=== PATIENT | female | born 1995 | race Caucasian/White ===

== ENCOUNTER → 2017-05-31 | Outpatient (CLI) | payer BC ==
--- NOTE | 2017-05-31 15:55 | XR ---
EXAMINATION TYPE: XR wrist complete LT, XR forearm LT DATE OF EXAM: 05/31/2017 CLINICAL HISTORY: pain TECHNIQUE: Frontal and lateral images of the left forearm are obtained. COMPARISON: None. FINDINGS: There is no acute fracture/dislocation evident. The joint spaces appear within normal limi ts. The overlying soft tissue appears unremarkable. IMPRESSION: There is no acute fracture or dislocation. ICD 10 NO FRACTURE, INITIAL EVALUATION EXAMINATION TYPE: XR wrist complete LT, XR forearm LT DATE OF EXAM: 05/31/2017 CLINICAL HISTORY: pain TECHNIQUE: Frontal, lateral and oblique images of the left wrist are obtained. COMPARISON: None. FINDINGS: There is no acute fracture/dislocation evident. The joint spaces appear within normal fitzpatrick its. The overlying soft tissue appears unremarkable. IMPRESSION: There is no acute fracture or dislocation seen. ICD 10 NO FRACTURE, INITIAL EVALUATION
== END ==
LOC: RADXRMAIN 15:35
PROVIDERS: ATTEND Family Medicine
DX: T14.90XA Injury, unspecified, initial encounter (principal)

== ENCOUNTER 2018-01-11 04:04 | Emergency (ER) | payer BC ==
--- NOTE | 2018-01-11 05:24 | ED ---
Chest Pain HPI - General Source: patient Mode of arrival: ambulatory Limitations: no limitations <MaryBryant - Last Filed: 01/11/18 05:24> - General Source: patient, family, RN notes reviewed <Jose Roberto Eaton - Last Filed: 01/11/18 08:46> - General Chief Complaint: Chest Pain Stated Complaint: Chest Pain Time Seen by Provider: 01/11/18 04:26 - History of Present Illness Initial Comments: Patient is a pleasant 22-year-old female presenting to the emergency department with complaints of chest discomfort. Patient originally seen by Dr. Chapa. Patient does have sharp discomfort left chest that waxes and wanes. Patient has been having symptoms for the past month, symptoms were worse yesterday. No discomfort at this time. Patient states she does have stress however is no worse than normal. (Jose Roberto Eaton) - Related Data Home Medications Medication Instructions Recorded Confirmed No Known Home Medications [No 11/05/14 01/11/18 Known Home Medications] Allergies Allergy/AdvReac Type Severity Reaction Status Date / Time No Known Allergies Allergy Verified 01/11/18 08:39 Review of Systems ROS Other: All systems not noted in ROS Statement are negative. <Bryant Hernandez - Last Filed: 01/11/18 05:24> ROS Other: All systems not noted in ROS Statement are negative. Constitutional: Denies: fever Eyes: Denies: eye pain ENT: Denies: ear pain Respiratory: Denies: cough Cardiovascular: Reports: chest pain Gastrointestinal: Denies: abdominal pain, vomiting Genitourinary: Denies: dysuria Musculoskeletal: Denies: back pain Skin: Denies: rash Neurological: Denies: weakness <Jose Roberto Eaton - Last Filed: 01/11/18 08:46> ROS Statement: Those systems with pertinent positive or pertinent negative responses have been documented in the HPI. EKG Findings - EKG Results: EKG: interpreted by ERMD, sinus rhythm (With first-degree AV block, rate approximately 94 bpm), normal axis, normal QRS - Blocks, Goodwin, Hypertrophy, ST Abn: AV and intraventricular conduction: 1 AV block Repolarization changes or abnormalities: nonspecific abnormality, ST segment, and/or T wave <Bryant Hernandez - Last Filed: 01/11/18 05:24> Past Medical History Past Medical History: GERD/Reflux History of Any Multi-Drug Resistant Organisms: None Reported Past Surgical History: No Surgical Hx Reported Past Psychological History: No Psychological Hx Reported Smoking Status: Never smoker Past Alcohol Use History: Occasional Past Drug Use History: None Reported <MaryBryant - Last Filed: 01/11/18 05:24> General Exam Limitations: no limitations <MaryBryant - Last Filed: 01/11/18 05:24> Limitations: no limitations General appearance: alert, in no apparent distress Head exam: Present: atraumatic Eye exam: Present: normal appearance Neck exam: Present: normal inspection Respiratory exam: Present: normal lung sounds bilaterally. Absent: chest wall tenderness Cardiovascular Exam: Present: regular rate, normal rhythm, normal heart sounds Expanded Peripheral pulses: 2+: Radial (R), Radial (L), Dorsalis Pedis (R), Dorsalis Pedis (L) GI/Abdominal exam: Present: soft. Absent: tenderness Extremities exam: Present: normal inspection. Absent: pedal edema, calf tenderness Neurological exam: Present: alert Psychiatric exam: Present: normal affect, normal mood Skin exam: Present: normal color <Jose Roberto Eaton - Last Filed: 01/11/18 08:46> Course <Bryant Hernandez - Last Filed: 01/11/18 05:24> <Jose Roberto Eaton - Last Filed: 01/11/18 08:46> Vital Signs 01/11/18 01/11/18 01/11/18 04:09 05:48 06:52 Temperature 98.3 F Pulse Rate 93 83 75 Respiratory 18 18 16 Rate Blood Pressure 130/79 120/72 118/73 O2 Sat by Pulse 100 98 99 Oximetry - Reevaluation(s) Reevaluation #1: 01/11/18 08:43 Chest x-ray shows no acute abnormality. I did review this. EKG was reviewed Patient evaluated by myself and is symptom-free. Patient and family updated on results and need for follow-up. Patient states she does have a primary care physician. (Jose oRberto Eaton) Chest Pain MDM - KWAME Score Age > 65: (0) No 3 or more CAD Risk Factors: (0) No Known CAD with more than 50% Stenosis: (0) No Elevated Cardiac Markers: (0) No ST Deviation Greater than 0.5mm: (0) No <Jose Roberto Eaton - Last Filed: 01/11/18 08:46> Disposition <Bryant Hernandez - Last Filed: 01/11/18 05:24> Is patient prescribed a controlled substance at d/c from ED?: No Time of Disposition: 08:45 <Jose Roberto Eaton - Last Filed: 01/11/18 08:46> Clinical Impression: Chest pain Disposition: HOME SELF-CARE Condition: Stable Instructions: Chest Pain (ED) Additional Instructions: Please follow-up with primary care physician in the next day or 2 for recheck. Consider cardiac echo. Return for increased pain, difficulty breathing, change or worsening symptoms, or any other concerns. Referrals: Christ Castellano MD [Primary Care Provider] - 1-2 days
[2018-01-11 05:48] LABS: Basophils % (A) 0 %; Eosinophils # (A) 0.1 k/uL (0-0.7); Eosinophils % (A) 2 %; HCT 38.2 % (34.0-46.0); HGB 13.4 gm/dL (11.4-16.0); Lymphocytes # (A) 1.8 k/uL (1.0-4.8); Lymphocytes % (A) 24 %; MCH 30.5 pg (25.0-35.0); MCHC 35.1 g/dL (31.0-37.0); MCV 86.7 fL (80.0-100.0); Mean Platelet Volume 7.1; Monocytes # (A) 0.5 k/uL (0-1.0); Monocytes % (A) 6 %; Neutrophils # (A) 5.2 k/uL (1.3-7.7); Neutrophils % (A) 67 %; Platelet Count 212 k/uL (150-450); RBC 4.41 m/uL (3.80-5.40); RDW 12.2 % (11.5-15.5); WBC 7.8 k/uL (3.8-10.6)
[2018-01-11 05:57] LABS: Creatine Kinase 92 U/L (30-135)
[2018-01-11 05:58] LABS: ALT 26 U/L (9-52); AST 23 U/L (14-36); Alkaline Phosphatase 71 U/L (38-126); Amylase 61 U/L (30-110); Anion Gap 12 mmol/L; Blood Urea Nitrogen 11 mg/dL (7-17); Calcium 9.7 mg/dL (8.4-10.2); Carbon Dioxide 24 mmol/L (22-30); Chloride 105 mmol/L (98-107); Glucose 93 mg/dL (74-99); Lipase 40 U/L (23-300); Magnesium 2.1 mg/dL (1.6-2.3); Potassium 3.6 mmol/L (3.5-5.1); Sodium 141 mmol/L (137-145); Total Bilirubin 0.8 mg/dL (0.2-1.3); Total Protein 7.5 g/dL (6.3-8.2)
[2018-01-11 06:04] LABS: D-Dimer 0.22 mg/L FEU (<0.60); Partial Thromboplastin Time 24.4 sec (22.0-30.0); Prothrombin Time 10.2 sec (9.0-12.0)
[2018-01-11 06:10] LABS: Creatine Kinase MB 0.6 ng/mL (0.0-2.4); Troponin I <0.012 ng/mL (0.000-0.034)
--- NOTE | 2018-01-11 06:13 | XR ---
EXAM: XR Chest, 2 Views CLINICAL HISTORY: ITS.REASON XR Reason: Chest Pain TECHNIQUE: Frontal and lateral views of the chest. COMPARISON: No relevant prior studies available. FINDINGS: Lungs: Unremarkable. No consolidation. Pleural space: Unremarkable. No pneumothorax. Heart: Unremarkable. No cardiomegaly. Mediastinum: Unremarkable. Bones/joints: Unremarkable. IMPRESSION: Normal chest x-rays.
[2018-01-11 06:54] VITALS: RESP 16
[2018-01-11 09:04] VITALS: BP 109/70; PULSE 72; TEMP 98.2
== END 2018-01-11 09:02 | disposition home or self-care (01) ==
LOC: EC 04:04
DX: R07.9 Chest pain, unspecified (principal)
CPT/HCPCS: 36415; 71046; 80053; 81025; 82150; 82550; 82553; 83690; 83735; 84484; 85025; 85379; 85610; 85730; 93005; 99285

== ENCOUNTER 2018-03-02 12:19 | Emergency (ER) | payer BC ==
[2018-03-02 12:25] VITALS: RESP 18; TEMP 98.2
[2018-03-02] MEDS ORDERED: SODIUM CHLORIDE 0.9% 1,000 ML IV ONE (12:59)
--- NOTE | 2018-03-02 13:55 | XR ---
EXAMINATION TYPE: XR chest 2V DATE OF EXAM: 03/02/2018 COMPARISON: 01/11/2018 HISTORY: 22-year-old female with chest pain TECHNIQUE: PA and lateral views FINDINGS: The cardiomediastinal silhouette, aorta, and pulmonary vasculature are within normal limits. Lungs an d pleural spaces are clear. IMPRESSION: No acute cardiopulmonary process.
[2018-03-02 14:31] LABS: ALT 24 U/L (9-52); AST 25 U/L (14-36); Albumin 4.7 g/dL (3.5-5.0); Alkaline Phosphatase 53 U/L (38-126); Anion Gap 10 mmol/L; Blood Urea Nitrogen 11 mg/dL (7-17); Calcium 9.5 mg/dL (8.4-10.2); Carbon Dioxide 23 mmol/L (22-30); Chloride 107 mmol/L (98-107); Glucose 99 mg/dL (74-99); Magnesium 2.1 mg/dL (1.6-2.3); Potassium 4.1 mmol/L (3.5-5.1); Sodium 140 mmol/L (137-145); Total Bilirubin 1.4 mg/dL (0.2-1.3)
[2018-03-02 14:38] LABS: D-Dimer 0.23 mg/L FEU (<0.60); INR 1.1 (<1.2); Partial Thromboplastin Time 23.1 sec (22.0-30.0); Prothrombin Time 10.6 sec (9.0-12.0)
[2018-03-02 15:19] LABS: Basophils % (A) 0 %; Eosinophils # (A) 0.1 k/uL (0-0.7); Eosinophils % (A) 1 %; HCT 36.8 % (34.0-46.0); HGB 12.6 gm/dL (11.4-16.0); Lymphocytes # (A) 1.6 k/uL (1.0-4.8); Lymphocytes % (A) 23 %; MCH 30.2 pg (25.0-35.0); MCHC 34.2 g/dL (31.0-37.0); MCV 88.5 fL (80.0-100.0); Mean Platelet Volume 8.6; Monocytes # (A) 0.3 k/uL (0-1.0); Monocytes % (A) 5 %; Neutrophils # (A) 4.8 k/uL (1.3-7.7); Neutrophils % (A) 70 %; Platelet Count 219 k/uL (150-450); RBC 4.16 m/uL (3.80-5.40); RDW 12.7 % (11.5-15.5); WBC 6.9 k/uL (3.8-10.6)
--- NOTE | 2018-03-02 15:43 | ED ---
Chest Pain HPI - General Source: patient, RN notes reviewed Mode of arrival: EMS Limitations: no limitations <Karissa Husain - Last Filed: 03/03/18 00:46> <ChristFranco - Last Filed: 03/03/18 07:11> - General Chief Complaint: Chest Pain Stated Complaint: Chest Pain Time Seen by Provider: 03/02/18 12:30 - History of Present Illness Initial Comments: This is a 22-year-old female with no past medical history who presents today for chief complaint of chest pain. Patient states that she has had chest pain for the past 6 months, was seen here around 3 months ago for the same complaint where they "found nothing wrong". 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 Patient states that she has experienced multiple episodes of this chest pain randomly, and this is not the first time she did experience these symptoms. She also stated that she constantly has chest pain in the center of her chest that is 5 out of 10 aching pain. She denied knowing any patterns, it does not increase with respiration. She states that it is tender to touch but also is aching when she is not touching it. When she was seen 3 months ago for similar complaint, workup for acute coronary syndrome was negative, no arrhythmia at that time. Patient was discharged instruction to follow-up with her primary care brought provider, and he recommended an echo. Patient states she did not follow up with her primary care provider because she stated her mom works there. However the primary care provider gave her referral for vibratory pile driver in [place]. She had appointment scheduled with her vibratory pile driver today at 4:30 PM for initial evaluation, however due to her symptoms at work she was told by her coworkers that she needed to go to the emergency department via EMS. Upon arrival of EMS patient still complained of chest pain 9/10 sharp in nature that she said radiated down her left arm, a line was established patient was given 325 mg of aspirin, IV fluids. Upon arrival to [facility] patient's vital signs stable. EKG was obtained revealing sinus tachycardia with first-degree AV block, no ST elevation or T-wave inversion. Patient denied current dizziness, shortness of breath, however she stated that her chest pain was a 5 out of 10 aching pain without radiation in the center her chest the same pain she experiences daily.Patient denies any recent fever, chills, IVDU, back pain, abdominal pain, nausea or vomiting, numbness or tingling, dysuria or hematuria, constipation or diarrhea, headaches or visual changes, or any other complaints. (Karissa Husain) - Related Data Home Medications Medication Instructions Recorded Confirmed No Known Home Medications 11/05/14 03/02/18 Allergies Allergy/AdvReac Type Severity Reaction Status Date / Time No Known Allergies Allergy Verified 03/02/18 12:58 Review of Systems ROS Other: All systems not noted in ROS Statement are negative. Constitutional: Denies: fever, chills, weight change, night sweats Eyes: Denies: eye pain, vision change ENT: Denies: hearing loss Cardiovascular: Reports: as per HPI, chest pain. Denies: palpitations, dyspnea on exertion, orthopnea, edema, syncope, paroxysmal nocturnal dyspnea Gastrointestinal: Denies: abdominal pain, nausea, vomiting, diarrhea, constipation Genitourinary: Denies: urgency, dysuria, frequency, hematuria Musculoskeletal: Denies: back pain, arthralgia Skin: Denies: rash, lesions, change in color Neurological: Denies: headache, weakness, numbness, paresthesias, confusion, abnormal gait Psychiatric: Reports: anxiety (pt states that she does have occasional anxiety) <Karissa Husain - Last Filed: 03/03/18 00:46> ROS Other: All systems not noted in ROS Statement are negative. <Franco Polo - Last Filed: 03/03/18 07:11> ROS Statement: Those systems with pertinent positive or pertinent negative responses have been documented in the HPI. EKG Findings - EKG Comments: EKG Findings:: Ventricular rate 106 beats per minute, MS interval 212 ms, QRS 86 ms, QT/QTc 328/[address] elevation or T-wave inversion. Sinus tachycardia with first-degree AV block- otherwise normal EKG. <Karissa Husain - Last Filed: 03/03/18 00:46> Past Medical History Past Medical History: GERD/Reflux History of Any Multi-Drug Resistant Organisms: None Reported Past Surgical History: No Surgical Hx Reported Past Psychological History: No Psychological Hx Reported Smoking Status: Never smoker Past Alcohol Use History: Occasional Past Drug Use History: None Reported <Karissa Husain - Last Filed: 03/03/18 00:46> General Exam Limitations: no limitations <Karissa Husain - Last Filed: 03/03/18 00:46> <Franco Polo - Last Filed: 03/03/18 07:11> - General Exam Comments Initial Comments: General: The patient is awake and alert, in no distress, and does not appear acutely ill. She appear comfortable. (-) Levign sign Eye: Pupils are equal, round and reactive to light, extra-ocular movements are intact. No nystagmus. There is normal conjunctiva bilaterally. No signs of icterus. Ears, nose, mouth and throat: There are moist mucous membranes and no oral lesions. Neck: The neck is supple, there is no tenderness or JVD. Cardiovascular: There is a regular rate and rhythm. No murmur, rub or gallop is appreciated. No friction rub appreciated. Respiratory: Lungs are clear to auscultation, respirations are non-labored, breath sounds are equal. No wheezes, stridor, rales, or rhonchi. Gastrointestinal: Soft, non-distended, non-tender abdomen without masses or organomegaly noted. There is no rebound or guarding present. Bowel sounds are unremarkable. Musculoskeletal: Normal ROM, no tenderness. Strength 5/5. Sensation intact. Radial and DP pulses equal bilaterally 2+. Neurological: A&O x 3. CN II-XII intact, There are no obvious motor or sensory deficits. Coordination appears grossly intact. Speech is normal. Skin: Skin is warm and dry and no rashes or lesions are noted. No lower extremity edema. No cyanosis. Psychiatric: Cooperative, appropriate mood & affect, normal judgment. (LisahKarissa Nava) Course <Karissa Husain Elijah - Last Filed: 03/03/18 00:46> <Franco Polo - Last Filed: 03/03/18 07:11> Vital Signs 03/02/18 03/02/18 03/02/18 12:22 14:13 15:48 Temperature 98.2 F Pulse Rate 109 H 93 94 Respiratory 18 18 18 Rate Blood Pressure 131/62 119/73 121/79 O2 Sat by Pulse 97 97 98 Oximetry 03/02/18 17:06 Temperature 98.2 F Pulse Rate 94 Respiratory 18 Rate Blood Pressure 121/79 O2 Sat by Pulse 98 Oximetry - Reevaluation(s) Reevaluation #1: 03/03/18 07:11 PA supervision: I did personally review the case with the physician therapy administrative assistant as well as review the results of all testing and do agree with the assessment and plan. (Franco Polo) Chest Pain [facility] - [place] Criteria Clinical Symptoms of DVT: (0) No No Alternative Diagnosis: (0) No Immobilization of Surgery in Previous 4 Weeks: (0) No Previous DVT/PE: (0) No Hemoptysis: (0) No Malignancy: (0) No - KWAME Score Age > 65: (0) No 3 or more CAD Risk Factors: (0) No Known CAD with more than 50% Stenosis: (0) No Aspirin use within the Past 7 Days: (0) No Elevated Cardiac Markers: (0) No ST Deviation Greater than 0.5mm: (0) No <Karissa Husain - Last Filed: 03/03/18 00:46> <Franco Polo - Last Filed: 03/03/18 07:11> - [facility] Initial VS stable HR elevated at 106bpm. Pt placed on continuous cardiac monitoring, EKG obtained revealing no changes from previous EKG-revealing sinus tachycardia with 1st degree AV block. Pt admitted to chest pain 5/10 dull ache in center of chest without radiation, that is the same pain she has everyday for the past 6 months. Able to increase pain with palpation of center of chest. CBC, CMP, trop, mag, D-dimer, bHCG, PT, PTT/INR and urine drug toxicology obtained all returned (-) or within normal limits. UA dirty catch, no urinary symptoms. Sent for culture. CXR (-) for silhouette enlargement or acute cardiopulmonary process. Pt given 1000mL bolus 0.9% NS. Repeat VS HR 94 bpm. BP in left arm 125/84, right arm 117/88. Upon evaluation pt stated she was ready for discharge and feeling better without symptoms. Case discussed with Dr. Polo who agreed with impression and plan. At this time we have low suspicion for ACS given pt age, risk factors and negative cardiac w/u. Low suspicion for PE given (-) Well and D-dimer WNL. At this time we feel pt is stable for discharge with PCP for further cardiology referral. We recommend holter monitoring and/or echo to ensure no underlying arrythmia or structural defect. Pt agreed with plan and was discharged in stable condition with instruction to return to the ER if symptoms return, worsen or change. (Karissa Husain) Disposition Is patient prescribed a controlled substance at d/c from ED?: No Time of Disposition: 16:12 <Karissa Husain - Last Filed: 03/03/18 00:46> <Franco Polo - Last Filed: 03/03/18 07:11> Clinical Impression: Chest pain Disposition: HOME SELF-CARE Condition: Good Instructions: Chest Pain (ED), Costochondritis (ED) Additional Instructions: Please follow-up with family doctor in the next 2 days for cardiology referral and further evaluation. I recommend holter monitoring, and possible echo. Please return to emergency room if the symptoms increase or worsen or for any other concerns as discussed. Referrals: Christ Castellano MD [Primary Care Provider] - 1-2 days
[2018-03-02 15:50] VITALS: BP 121/79; PULSE 94
[2018-03-02 16:09] LABS: Appearance,Urine Turbid (Clear); Bacteria,Urine Occasional /hpf; Bilirubin,Urine Negative (Negative); Blood,Urine Trace (Negative); Color,Urine Yellow; Glucose,Urine (UA) Negative (Negative); Ketones,Urine Negative (Negative); Leukocyte Esterase,Urine Large (Negative); Mucus,Urine Many /hpf; Nitrite,Urine Negative (Negative); PH, Urine 6.5 (5.0-8.0); Protein,Urine 1+ (Negative); RBC,Urine 6 /hpf (0-5); Specific Gravity,Urine 1.017 (1.001-1.035); Squamous Epithelial Cell,Urine 50 /hpf (0-4); WBC,Urine 19 /hpf (0-5)
[2018-03-02 16:16] LABS: Amphetamine Screen,Urine Not Detected (NotDetected); Barbiturate Screen,Urine Not Detected (NotDetected); Benzodiazepines Screen,Urine Not Detected (NotDetected); Cocaine Screen,Urine Not Detected (NotDetected); Methadone Screen, Urine Not Detected (NotDetected); Opiate Screen,Urine Not Detected (NotDetected); Oxycodone Screen, Urine Not Detected (NotDetected); Phencyclidine Screen,Urine Not Detected (NotDetected); Tricyclic Antidepressant,Urine Not Detected (NotDetected); Urn Cannabinoid Scrn Not Detected (NotDetected)
== END 2018-03-02 17:06 | disposition home or self-care (01) ==
LOC: EC 12:19
DX: R07.9 Chest pain, unspecified (principal); I44.0 Atrioventricular block, first degree; R00.0 Tachycardia, unspecified
CPT/HCPCS: 36415; 71046; 80053; 80306; 81001; 83735; 84484; 85025; 85379; 85610; 85730; 87086; 93005; 99285

== ENCOUNTER → 2020-04-13 | Outpatient (CLI) | payer BC ==
--- NOTE | 2020-04-13 12:38 | XR ---
EXAMINATION TYPE: XR ankle complete LT, XR foot complete LT DATE OF EXAM: 04/13/2020 CLINICAL HISTORY: Rolling injury with pain and swelling. TECHNIQUE: Frontal, lateral and oblique images of the left ankle and foot are obtained. COMPARISON: None. FINDINGS: There is no acute fracture/dislocation evident in the left ankle. The ankle mortise appea rs within normal limits. The overlying soft tissue appears unremarkable. There is no acute fracture or dislocation evident in the left foot. The joint spaces in the left sophia t are preserved. Overlying soft tissue is unremarkable. IMPRESSION: There is no acute fracture or dislocation in the left ankle or foot.
== END | disposition home or self-care (01) ==
LOC: RAD 11:37
PROVIDERS: ATTEND Family Medicine
DX: M25.572 Pain in left ankle and joints of left foot (principal)

== ENCOUNTER → 2020-11-06 | Outpatient (CLI) | payer BC | END | disposition home or self-care (01) | LOC: LABWHC1 15:29 | PROVIDERS: ATTEND Family Medicine | DX: Z20.822 Contact with and (suspected) exposure to COVID-19 (principal) | CPT/HCPCS: U0003; C9803 ==

== ENCOUNTER → 2021-01-15 | Outpatient (CLI) | payer BC, OTHER ==
--- NOTE | 2021-01-15 09:08 | US ---
EXAMINATION TYPE: US OB >= 14 wk fetus DATE OF EXAM: 01/15/2021 COMPARISON: None CLINICAL HISTORY: O36.63X0 Large for dates TECHNIQUE: GESTATIONAL AGE / DATING Physician Established: (32 weeks/0 days) EDC: 03-12-21 Dates by LMP: LMP unknown Dates by First Scan: No previous at this facility Dates by Current Scan: ( weeks/ days) EDC: Beta HCG (if available): SURVEY IUP: Single PLACENTA: Anterior PREVIA: No Previa DAT: 13.6 cm CERVICAL LENGTH (transabdominal: norm > 3.0cm): 3.2 cm BIOMETRY PRESENTATION: LIE: BPD: 8.9 cm 36 weeks / 2 days HC: 32.3 cm 36 weeks / 3days AC: 30.0 cm 34 weeks / 0 days FL: 6.4 cm 33 weeks / 0 days ESTIMATED WEIGHT IN GRAMS: 2364 grams ESTIMATED WEIGHT IN LBS/OZ: 5 lbs. 3 oz. WEIGHT PERCENTAGE BASED ON ESTABLISHED DATES: 94 % HC/AC: 1.1 FL/AC: 21.4 HEART RATE: 147 bpm RHYTHM: Normal This is not an anatomic survey. IMPRESSION: Single live intrauterine measuring approximately 34 weeks and 2 days gestation by sonograph ic criteria. measurements, as above.
== END | disposition home or self-care (01) ==
LOC: RADUSWWP 08:09
PROVIDERS: ATTEND Obstetrics & Gynecology
DX: O36.63X0 Maternal care for excessive fetal growth, third trimester, not applicable or unspecified (principal); Z3A.34 34 weeks gestation of pregnancy
CPT/HCPCS: 76805

== ENCOUNTER 2021-02-19 15:56 | Inpatient (IN) | payer BC, OTHER ==
[2021-02-19] MEDS ORDERED: CITRIC ACID-SODIUM CITRATE 15 ML CUP PO ONE (17:04)
[2021-02-19] MEDS ORDERED: LACTATED RINGERS 1,000 ML IV ONE (17:04)
[2021-02-19] MEDS ORDERED: LACTATED RINGERS 1,000 ML IV SCH (17:15)
[2021-02-19 17:34] LABS: Glucose,Whole Blood 85 mg/dL (75-99)
[2021-02-19 17:47] LABS: Basophils % (A) 0 %; Eosinophils # (A) 0.1 k/uL (0-0.7); Eosinophils % (A) 1 %; HCT 38.1 % (34.0-46.0); HGB 13.4 gm/dL (11.4-16.0); Lymphocytes # (A) 1.9 k/uL (1.0-4.8); Lymphocytes % (A) 16 %; MCH 31.5 pg (25.0-35.0); MCHC 35.2 g/dL (31.0-37.0); MCV 89.6 fL (80.0-100.0); Mean Platelet Volume 9.7; Monocytes # (A) 0.6 k/uL (0-1.0); Monocytes % (A) 5 %; Neutrophils # (A) 9.6 k/uL (1.3-7.7); Neutrophils % (A) 78 %; Platelet Count 159 k/uL (150-450); RBC 4.25 m/uL (3.80-5.40); RDW 13.7 % (11.5-15.5); WBC 12.3 k/uL (3.8-10.6)
[2021-02-19] MEDS ORDERED: MORPHINE SULFATE (PF) 0.3 MG/0.3 ML SYR ONE (18:02)
[2021-02-19] MEDS ORDERED: ONDANSETRON 4 MG/2 ML VIAL ONE (18:02)
[2021-02-19] MEDS ORDERED: KETOROLAC 15 MG/ML 1 ML VIAL ONE (18:02)
[2021-02-19] MEDS ORDERED: PHENYLEPHRINE-0.9% NACL SYG 1,000 MCG/10 ML SYRINGE ONE (18:02)
[2021-02-19] MEDS ORDERED: NALBUPHINE 10 MG/ML (1 ML AMP) ONE (18:02)
[2021-02-19] MEDS ORDERED: OXYTOCIN 30 UNITS/500 ML NS BAG IV ONE (18:02)
[2021-02-19] MEDS ORDERED: HYDROmorphone 2 MG TAB PO PRN (18:41)
[2021-02-19] MEDS ORDERED: diphenhydrAMINE 50 MG/ML 1 ML VIAL IVP PRN ×2 (18:41)
[2021-02-19] MEDS ORDERED: MEASLES-MUMPS-RUBELLA VACC/PF 12,500 UNIT/0.5 ML VIAL SQ ONE (18:41)
[2021-02-19] MEDS ORDERED: diphenhydrAMINE 50 MG CAP PO PRN (18:41)
[2021-02-19] MEDS ORDERED: diphenhydrAMINE 25 MG CAP PO PRN (18:41)
[2021-02-19] MEDS ORDERED: NALOXONE 0.4 MG/ML 1 ML VIAL IV PRN ×2 (18:41→19:01)
[2021-02-19] MEDS ORDERED: ZOLPIDEM 5 MG TAB PO PRN (18:41)
[2021-02-19] MEDS ORDERED: ONDANSETRON 4 MG/2 ML VIAL IVP PRN (18:41)
[2021-02-19] MEDS ORDERED: METOCLOPRAMIDE 5 MG/ML 2 ML VIAL IVP PRN (18:41)
--- NOTE | 2021-02-19 18:45 | P.HPOB ---
History of Present Illness H&P Date: 02/19/21 Chief Complaint: Intrauterine term: Gdm A2: Macrosomia by u/s Jolanta is a 25-year-old at 37 weeks gestation who had an ultrasound approximately 2 weeks ago suspecting macrosomia in the neighborhood of 98 percentile. A discussion was held 20 she and her primary oracle financial application developer as well as she and myself and while she was offered an opportunity to labor if she wanted to, a very thorough description in discussion of shoulder dystocia and potential other competitions was held with the patient and she and her have opted for primary section which she was scheduled for at 39 weeks. She has been on insulin for her gestational diabetes and has been followed closely through the and otherwise voices no complaints or other issues. There apparently was a fibroid noted at an early ultrasound does not appear to have been noted on [id number] ultrasounds and she did see endocrinology for her gestational diabetes. Risks/benefits/alternatives to this procedure were reviewed with patient in detail and all questions were answered for her prior to proceeding to the operating room. Adequate 1 tracing is noted. She notes that she believes she had rupture of membranes potentially's early is a 30 this morning with leaking fluid throughout the day. We did also review possible risks of rupture membranes for an extended period of time even with negative group B strep status. Pertinent labs O+ blood type, Rh have been was negative, rubella is nonimmune, hepatitis E surface antigen Noam B strep were both negative. Past Medical History Past Medical History: GERD/Reflux History of Any Multi-Drug Resistant Organisms: None Reported Past Surgical History: No Surgical Hx Reported Past Anesthesia/Blood Transfusion Reactions: No Reported Reaction Past Psychological History: No Psychological Hx Reported Smoking Status: Never smoker Past Alcohol Use History: Occasional Past Drug Use History: None Reported - Past Family History Mother Family Medical History: Osteoarthritis (OA) Medications and Allergies Home Medications Medication Instructions Recorded Confirmed Type Insulin Detemir (Levemir) [Levemir] 45 arlet u SQ ONCE 02/19/21 02/19/21 History Allergies Allergy/AdvReac Type Severity Reaction Status Date / Time No Known Allergies Allergy Verified 02/19/21 16:14 Exam Osteopathic Statement: *. No significant issues noted on an osteopathic structural exam other than those noted in the History and Physical/Consult. Vital Signs Temp Pulse Resp BP Pulse Ox 02/19/21 16:45 97.1 F L 107 H 16 131/85 98 02/19/21 16:36 97.1 F L 107 H 16 131/85 98 Intake and Output 02/19/21 02/19/21 02/19/21 06:59 14:59 22:59 Other: Weight 92.533 kg - OBG Physical Exam Breast: both: normal (no masses) Abdomen: bowel sounds normal, no diffuse tenderness, no bruit present, no guarding noted, no hepatomegaly, no splenomegaly, no mass Vulva: both: normal Vagina: normal moisture, no discharge Cervix: no lesion, no discharge Uterus: normal size, normal contour Adnexa: both: normal Anus/Rectum: normal perianal skin, no rectal mass, no hemorrhoids, heme negative Results Result Diagrams: 02/19/21 17:42 Abnormal Lab Results - Last 24 Hours (Table) 02/19/21 Range/Units 17:42 WBC 12.3 H (3.8-10.6) k/uL Neutrophils # 9.6 H (1.3-7.7) k/uL
--- NOTE | 2021-02-19 18:48 | P.OP ---
Date of Procedure: 02/19/21 Preoperative Diagnosis: Intrauterine at term: Gestation diabetes A2: Macrosomia by ultrasound: Spontaneous rupture membranes Postoperative Diagnosis: Same Procedure(s) Performed: Primary low transverse section Anesthesia: spinal Surgeon: Duglas Mcdermott District Sales Representative #1: Madeleine Mazariegos Estimated Blood Loss (ml): 300 IV fluids (ml): 800 Urine output (ml): 250 Pathology: other (Placenta) Condition: stable Disposition: floor Operative Findings: Male scores of 8 and 9 at one and 5 minutes Neeraj and weight was 6 lbs. 15 oz. Description of Procedure: A she was taken to the operating suite where a spinal anesthetic was found be adequate. She was prepped and draped in normal sterile fashion and placed in the dorsal supine position with leftward tilt. Initially a Pfannenstiel skin incision was made and this incision was then carried through to underlying layer of the fascia with the second knife. Fascia was then nicked in the midline and this opening was extended laterally with Graves scissors. Superior and inferior aspect of this incision were then grasped tented up and bluntly and sharply dissected off the rectus muscles. Rectus muscles were then divided midline and blunt dissection through the peritoneum was done. This opening was then extended superiorly and inferiorly with good visualization of both bowel bladder. Bladder blade was then grasped elevated and entered with Scissors Carried across Face Uterus and Bluntly Dissected Out Of the Operative Field. Knife Was Then Used To Incise Uterus This Opening Was Then Extended Bluntly Following Hemostat Used for Completion of Entry into the Uterus. Head Was Then Atraumatically Delivered and Mouth and Nares Were Bulb Suctioned. Nuchal Cord 1 Was Noted and Easily Reduced. Remainder of Baby Was Then Delivered with Gentle Traction and Nursery Personnel Was Present to Assume Care. Placenta Was Then Delivered Intact Following Obtaining of Cord Blood. Uterus Was Then Exteriorized Cleared of Clots and Debris and Closed in 2 Layers with 0 Vicryl Suture. Once Hemostasis Was Obtained Blood and Debris Was Suctioned
[2021-02-19] MEDS ORDERED: MORPHINE SULFATE 2 MG/ML SYRINGE IVP PRN (19:01)
[2021-02-20] MEDS: LACTATED RINGERS 1,000 ML IV SCH ×2 (00:08→02:56)
[2021-02-20] MEDS: SENNOSIDES-DOCUSATE SODIUM 1 EACH TAB PO SCH ×3 (00:08→20:07)
[2021-02-20] MEDS ORDERED: KETOROLAC 15 MG/ML 1 ML VIAL IVP SCH (06:00)
[2021-02-20 06:27] LABS: Basophils % (A) 0 %; Eosinophils # (A) 0.1 k/uL (0-0.7); Eosinophils % (A) 1 %; HCT 31.1 % (34.0-46.0); HGB 10.9 gm/dL (11.4-16.0); Lymphocytes # (A) 2.1 k/uL (1.0-4.8); Lymphocytes % (A) 15 %; MCH 31.8 pg (25.0-35.0); MCHC 34.9 g/dL (31.0-37.0); MCV 91.2 fL (80.0-100.0); Mean Platelet Volume 9.4; Monocytes # (A) 0.6 k/uL (0-1.0); Monocytes % (A) 4 %; Neutrophils # (A) 11.2 k/uL (1.3-7.7); Neutrophils % (A) 79 %; Platelet Count 138 k/uL (150-450); RBC 3.41 m/uL (3.80-5.40); RDW 13.6 % (11.5-15.5); WBC 14.1 k/uL (3.8-10.6)
--- NOTE | 2021-02-20 06:30 | P.PNOBGPC ---
Subjective - Subjective Patient reports: Reports appetite normal, Reports voiding normally, Reports pain well controlled, Reports ambulating normally : doing well Objective - Vital Signs Latest vital signs: Vital Signs Temp Pulse Resp BP Pulse Ox 02/20/21 06:00 14 02/20/21 04:00 97.7 F 65 14 99/66 99 02/20/21 02:00 14 02/20/21 00:00 98.3 F 87 14 109/73 98 02/19/21 22:01 16 02/19/21 20:50 97.9 F 89 16 125/80 02/19/21 20:20 97.5 F L 86 16 129/82 02/19/21 20:01 16 98 02/19/21 19:50 96.7 F L 91 16 126/67 02/19/21 19:35 97 16 113/65 02/19/21 19:20 97.0 F L 84 16 109/63 02/19/21 19:05 97.3 F L 92 16 106/59 02/19/21 19:01 16 97 02/19/21 18:50 96.9 F L 90 16 95/50 98 02/19/21 16:45 97.1 F L 107 H 16 131/85 98 02/19/21 16:36 97.1 F L 107 H 16 131/85 98 Intake and Output 02/19/21 02/19/21 02/20/21 14:59 22:59 06:59 Output Total 550 600 Balance -550 -600 Output: Urine 600 Uretheral (Duncan) 600 Estimated Blood Loss 550 Other: Voiding Method Indwelling Catheter Indwelling Catheter Weight 92.533 kg - Exam Lungs: bilateral: normal Chest: Normal S1, Normal S2 Extremities: Present: normal Abdomen: Present: normal appearance, soft. Absent: distention, tenderness Incision: Present: normal, dry, intact Uterus: Present: normal, firm - Labs Labs: Abnormal Lab Results - Last 24 Hours (Table) 02/19/21 02/20/21 Range/Units 17:42 06:02 WBC 12.3 H 14.1 H (3.8-10.6) k/uL RBC 3.41 L (3.80-5.40) m/uL Hgb 10.9 L (11.4-16.0) gm/dL Hct 31.1 L (34.0-46.0) % Plt Count 138 L (150-450) k/uL Neutrophils # 9.6 H 11.2 H (1.3-7.7) k/uL Assessment and Plan Assessment: Postoperative day #1. Patient is resting without complaints. Vital signs are stable she's afebrile. Uterus is firm nontender she's having normal lochia. Impression is normal course. Plan is check a CBC, encourage ambulation, allow the patient shower. (1) delivery delivered Current Visit: Yes Status: Acute Code(s): O82 - ENCOUNTER FOR DELIVERY WITHOUT INDICATION SNOMED Code(s): 899085538
[2021-02-20] MEDS: IBUPROFEN 600 MG TAB PO PRN ×3 (07:57→23:09)
--- NOTE | 2021-02-20 09:31 | P.PN ---
Progress Note - Text Date: 02/20/2021 Time: 07:07 The patient is status post section Vital signs stable VAS: 0-10 Patient has no complaints of pain. The patient incurred some minimal itching yesterday, this itching is now subsiding. Pain meds to be managed by service.
[2021-02-20] MEDS: ACETAMINOPHEN TAB 325 MG TAB PO PRN ×2 (13:26→20:07)
[2021-02-21] MEDS: IBUPROFEN 600 MG TAB PO PRN ×2 (06:13→13:22)
--- NOTE | 2021-02-21 06:27 | P.PNOBGPC ---
Subjective - Subjective Patient reports: Reports appetite normal, Reports voiding normally, Reports pain well controlled, Reports ambulating normally : doing well Objective - Vital Signs Latest vital signs: Vital Signs Temp Pulse Resp BP Pulse Ox 02/20/21 23:22 98.1 F 94 14 114/77 98 02/20/21 15:55 98.3 F 76 16 96/64 02/20/21 12:00 98.5 F 80 16 103/63 02/20/21 08:00 108 H 16 117/68 - Exam Lungs: bilateral: normal Chest: Normal S1, Normal S2 Extremities: Present: normal Abdomen: Present: normal appearance, soft. Absent: distention, tenderness Incision: Present: normal, dry, intact Uterus: Present: normal, firm - Labs Labs: Abnormal Lab Results - Last 24 Hours (Table) 02/20/21 Range/Units 06:02 WBC 14.1 H (3.8-10.6) k/uL RBC 3.41 L (3.80-5.40) m/uL Hgb 10.9 L (11.4-16.0) gm/dL Hct 31.1 L (34.0-46.0) % Plt Count 138 L (150-450) k/uL Neutrophils # 11.2 H (1.3-7.7) k/uL Assessment and Plan Assessment: Postoperative day #2. Patient is resting without new complaints and wishes to go home. Vital signs are stable and she is afebrile. Uterus is firm nontender and she is having normal lochia. My impression this is a normal course. Plan is to continue routine postoperative care and discharge home later today. (1) delivery delivered Current Visit: Yes Status: Acute Code(s): O82 - ENCOUNTER FOR DELIVERY WITHOUT INDICATION SNOMED Code(s): 362142963
--- NOTE | 2021-02-21 06:35 | P.DS ---
Providers Date of admission: 02/19/21 16:42 Expected date of discharge: 02/21/21 Attending physician: Lev Lang Primary care physician: Stated None - Discharge Diagnosis(es) (1) delivery delivered Current Visit: Yes Status: Acute Hospital Course: Please see dictated H&P for intimate details of this patient's admission. Brief summary this is a pleasant 25-year-old 2 para 0 female 37 weeks gestation who is admitted with spontaneous rupture membranes earlier in the morning. Patient's had serial ultrasounds showing macrosomia greater than 90th percentile and she is a insulin-dependent gestational diabetic and plan in the office was to proceed with section for delivery. Patient subsequently underwent a primary low transverse section for viable male . Please see dictated delivery note. Postoperatively patient did well and on postoperative 2 felt be stable for discharge home follow up with me in 1 week. Procedures: Primary low transverse section Patient Condition at Discharge: Good Plan - Discharge Summary New Discharge Prescriptions: New Ibuprofen [Motrin] 600 mg PO QID PRN #30 tab PRN Reason: Pain oxyCODONE HCL [OxyIR] 5 mg PO Q6H PRN #18 tab PRN Reason: Pain No Action Insulin Detemir (Levemir) [Levemir] 45 arlet u SQ ONCE Discharge Medication List Insulin Detemir (Levemir) [Levemir] 45 arlet u SQ ONCE 02/19/21 [History] Ibuprofen [Motrin] 600 mg PO QID PRN #30 tab 02/21/21 [Rx] oxyCODONE HCL [OxyIR] 5 mg PO Q6H PRN #18 tab 02/21/21 [Rx] Follow up Appointment(s)/Referral(s): Lev Lang MD [STAFF PHYSICIAN] - 04/03/21 10:30 am (Please come on February 28 at 1:30 PM for an incision check.) Patient Instructions/Handouts: (DC) Activity/Diet/Wound Care/Special Instructions: No intercourse or anything per vagina for 6 weeks. No strenuous activities or heavy lifting for 6 weeks. Please call if any fever, chills, excessive vaginal bleeding, and/or abdominal pain. Discharge Disposition: HOME SELF-CARE
[2021-02-21] MEDS: ACETAMINOPHEN TAB 325 MG TAB PO PRN (07:18)
[2021-02-21 08:32] VITALS: BP 110/70; PULSE 77; RESP 16; TEMP 97.8
== END 2021-02-21 15:10 | disposition home or self-care (01) | DRG 788 ==
LOC: FBPOP 15:56 → 4FBP 16:42
PROVIDERS: ADMIT Obstetrics & Gynecology; ATTEND Obstetrics & Gynecology
PROC: 3E00X4Z Introduction of Serum, Toxoid and Vaccine into Skin and Mucous Membranes, External Approach (ICD-10-PCS; 2021-02-19)
PROC: 10D00Z1 Extraction of Products of Conception, Low, Open Approach (ICD-10-PCS; principal; 2021-02-19 17:00)
DX: O36.63X0 Maternal care for excessive fetal growth, third trimester, not applicable or unspecified (principal); O24.424 Gestational diabetes mellitus in childbirth, insulin controlled; K21.9 Gastro-esophageal reflux disease without esophagitis; Z79.4 Long term (current) use of insulin; Z23 Encounter for immunization; Z37.0 Single live birth; Z3A.37 37 weeks gestation of pregnancy; O99.62 Diseases of the digestive system complicating childbirth; O99.73 Diseases of the skin and subcutaneous tissue complicating the puerperium; L29.9 Pruritus, unspecified; Z82.61 Family history of arthritis
CPT/HCPCS: 59025; 84112; 85025; 86850; 86900; 86901; 88307; 90707; 99213

== ENCOUNTER → 2021-06-30 | Outpatient (CLI) | payer BC, OTHER ==
[2021-06-30 23:49] LABS: Basophils # (A) 0.03 X 10*3/uL (0.00-0.10); Basophils % (A) 0.4 %; Eosinophils # (A) 0.08 X 10*3/uL (0.04-0.35); HCT 39.5 % (37.2-46.3); HGB 13.1 g/dL (12.0-15.0); Lymphocytes # (A) 2.18 X 10*3/uL (0.90-5.00); Lymphocytes % (A) 27.5 %; MCH 29.8 pg (27.0-32.0); MCHC 33.2 g/dL (32.0-37.0); Mean Platelet Volume 11.3 fL (9.5-12.2); Monocytes # (A) 0.54 X 10*3/uL (0.20-1.00); Monocytes % (A) 6.8 %; Neutrophils # (A) 5.09 X 10*3/uL (1.80-7.70); Neutrophils % (A) 64.2 %; Platelet Count 198 X 10*3/uL (140-440); RBC 4.39 X 10*6/uL (4.10-5.20); WBC 7.93 X 10*3/uL (4.50-10.00)
[2021-07-01 03:10] LABS: Amylase 49 U/L (23-121); LDL Cholesterol,Calculated 120.3 mg/dL (0.0-131.0); Lipase 20 U/L (14-63)
[2021-07-01 04:01] LABS: ALT 51 U/L (8-44); AST 33 U/L (13-35); African American GFR (CKD) 139.1 (60.0-200.0); Albumin/Globulin Ratio 2.34 (1.60-3.17); Alkaline Phosphatase 79 U/L (41-126); BUN/Creat Ratio 16.86 Ratio (12.00-20.00); Blood Urea Nitrogen 11.9 mg/dL (9.0-27.0); Calcium 9.7 mg/dL (8.7-10.3); Carbon Dioxide 23.5 mmol/L (20.0-27.5); Chloride 102 mmol/L (96-109); Globulin 2.1 g/dL (1.6-3.3); Glucose 85 mg/dL (70-110); Potassium 4.3 mmol/L (3.5-5.5); Sodium 139 mmol/L (135-145); Total Protein 7.1 g/dL (6.2-8.2)
== END | disposition home or self-care (01) ==
LOC: LABWHC1 14:45
PROVIDERS: ATTEND Family Medicine
DX: R73.9 Hyperglycemia, unspecified (principal)
CPT/HCPCS: 36415; 80053; 80061; 82150; 83036; 83690; 84443; 85025

== ENCOUNTER → 2022-07-13 | Outpatient (CLI) | payer BC, OTHER | END | disposition home or self-care (01) | LOC: LABWHC1 09:30 | PROVIDERS: ATTEND Obstetrics & Gynecology | DX: Z34.81 Encounter for supervision of other normal pregnancy, first trimester (principal); Z3A.00 Weeks of gestation of pregnancy not specified | CPT/HCPCS: 36415; 82950 ==

== ENCOUNTER 2022-08-10 20:07 | Emergency (ER) | payer BC, OTHER ==
[2022-08-10 21:14] VITALS: BP 118/84; PULSE 90; RESP 14; TEMP 97.7
[2022-08-10] MEDS ORDERED: ACETAMINOPHEN TAB 325 MG TAB PO STA (21:53)
--- NOTE | 2022-08-10 21:54 | ED ---
Fall HPI - General Chief Complaint: Fall Stated Complaint: 16 weeks preg/Fall/left knee injury,pressure Time Seen by Provider: 08/10/22 21:46 Source: patient, family () Mode of arrival: ambulatory - History of Present Illness Initial Comments: 26-year-old well-appearing patient presents to the emergency room with complaints of tripping and falling down 5 steps landing on her left knee and twisting onto her side. Patient states she is 16 weeks . Denies any vaginal bleeding or cramping. States that her REHABILITATION LIAISON Dr. Lang. She is a . REHABILITATION LIAISON watching her for possible placenta previa with occasional vaginal spotting. MD Complaint: fall -: hour(s) (4) Fall From: standing, down stairs (#) (5) Loss of Consciousness: none Prolonged Down Time?: no Symptoms Prior to Fall: none - Related Data Home Medications Medication Instructions Recorded Confirmed Insulin Detemir (Levemir) [Levemir] 45 arlet u SQ ONCE 02/19/21 02/19/21 Previous Rx's Medication Instructions Recorded Ibuprofen [Motrin] 600 mg PO QID PRN #30 tab 02/21/21 oxyCODONE HCL [OxyIR] 5 mg PO Q6H PRN #18 tab 02/21/21 Allergies Allergy/AdvReac Type Severity Reaction Status Date / Time No Known Allergies Allergy Verified 04/20/21 19:09 Review of Systems ROS Statement: Those systems with pertinent positive or pertinent negative responses have been documented in the HPI. ROS Other: All systems not noted in ROS Statement are negative. Past Medical History Past Medical History: GERD/Reflux Additional Past Medical History / Comment(s): gestational diabetes History of Any Multi-Drug Resistant Organisms: None Reported Past Surgical History: Section, Cholecystectomy Past Anesthesia/Blood Transfusion Reactions: No Reported Reaction Past Psychological History: No Psychological Hx Reported Smoking Status: Never smoker Past Alcohol Use History: None Reported, Occasional Past Drug Use History: None Reported - Past Family History Mother Family Medical History: Osteoarthritis (OA) General Exam Limitations: no limitations General appearance: alert, in no apparent distress Head exam: Present: atraumatic, normocephalic Eye exam: Present: normal appearance. Absent: scleral icterus, conjunctival injection, periorbital swelling Neck exam: Present: full ROM. Absent: tenderness, meningismus Respiratory exam: Present: normal lung sounds bilaterally. Absent: respiratory distress, accessory muscle use Cardiovascular Exam: Present: regular rate GI/Abdominal exam: Present: soft. Absent: tenderness, rigid Extremities exam: Present: normal capillary refill. Absent: pedal edema, calf tenderness Left Knee exam: Present: tenderness, pain/laxity with valgus, pain/laxity with varus. Absent: swelling, abrasion, laceration, ecchymosis, deformity, dislocation, erythema, effusion Lower Leg exam: Absent: tenderness, swelling Ankle exam: Absent: tenderness, swelling Neurovascular tendon exam: Present: no vascular compromise. Absent: abnormal cap refill, extremity cold to touch, pallor, foot drop Back exam: Present: tenderness (low back paraspinal). Absent: rash noted Neurological exam: Present: alert, oriented X3 Psychiatric exam: Present: normal affect, normal mood Skin exam: Present: warm, dry, normal color. Absent: cyanosis, diaphoretic, petechiae, pallor Course Vital Signs 08/10/22 21:09 Temperature 97.7 F Pulse Rate 90 Respiratory 14 Rate Blood Pressure 118/84 O2 Sat by Pulse 98 Oximetry Medical Decision Making - Medical Decision Making Patient was given Tylenol for pain as she is 16 weeks . X-ray of the left knee interpreted by me shows no evidence of fracture or d islocation. Radiologist interpretation negative left knee exam. Ultrasound performed patient states that she fell down 5 steps onto her abdomen. Denies any abdominal pain, vaginal bleeding or cramping at this time. Ultrasound shows gestational age 17 weeks 4 days. No complicating process seen. Heart rate 147. She'll be discharged home to follow up with her REHABILITATION LIAISON and primary care doctor. Rest ice and elevate. Tylenol for pain. Vital signs are stable. Patient is agreeable with this plan of care. Case discussed with Dr. Herron Was pt. sent in by a medical professional or institution? @ -no Did you speak to anyone other than the patient for history? @ -no Did you review nursing and triage notes? @ -yes i agree Were old charts reviewed? @ -no Differential Diagnosis? @ -fall, knee dislocation, fracture, ligamentous injury, placenta previa X-rays interpreted by me (1pt min.)? @ -yes as above CT interpreted by me (1pt min.)? @ -[none] U/S interpreted by me (1pt. min.)? @ -yes, IUP What testing was considered but not performed? (CT, X-rays, U/S, labs)? Why? @ none What meds were considered but not given? Why? @ -none Did you discuss the management of the patient with other professionals? @ -no Did you reconcile home meds? @ -no Was smoking cessation discussed for >3mins.? @ -[none] Was critical care preformed (if so, how long)? @ -no Were there social determinants of health that impacted care today? How? (Homelessness, low income, unemployed, alcoholism, drug addiction, transportation, low edu. Level, literacy, decrease access to med. care, retirement, rehab)? @ -none Was there de-escalation of care discussed even if they declined? (Discuss DNR or withdrawal of care, Hospice)? @ -no What co-morbidities impacted this encounter? (DM, HTN, Smoking, COPD, CAD, Cancer, CVA, Hep., AIDS, mental health diagnosis, sleep apnea, morbid obesity)? @ -, DM Was patient admitted / discharged? @ -discharged Undiagnosed new problem with uncertain prognosis? @ -[none] Drug Therapy requiring intensive monitoring for toxicity (Heparin, Nitro, Insulin, Cardizem)? @ -no Were any procedures done? @ -no Diagnosis/symptom? @ -fall, internal derangement left knee, intrauterine 17 weeks Acute, or Chronic, or Acute on Chronic? @ -acute Uncomplicated (without systemic symptoms) or Complicated (systemic symptoms)? @ -[default] Side effects of treatment? @ -[none] Exacerbation, Progression, or Severe Exacerbation] @ -[no] Poses a threat to life or bodily function? @ -[no] Disposition Clinical Impression: Fall, Internal derangement of left knee Disposition: HOME SELF-CARE Condition: Good Instructions (If sedation given, give patient instructions): Knee Pain (ED), Fall Prevention (ED) Additional Instructions: Rest ice and elevate left knee. Tylenol for pain and discomfort. Follow-up with your primary care doctor and REHABILITATION LIAISON as needed. Is patient prescribed a controlled substance at d/c from ED?: No Referrals: Christ Castellano MD [Primary Care Provider] - 1-2 days Time of Disposition: 23:24
--- NOTE | 2022-08-10 22:52 | US ---
EXAMINATION TYPE: US OB >= 14 wk fetus DATE OF EXAM: 08/10/2022 COMPARISON: None CLINICAL HISTORY: fall pain Pt fell today and states she is having some cramping TECHNIQUE: Transvaginal (TV) and Transabdominal (TA) GESTATIONAL AGE / DATING Physician Established: (16 weeks/2 days) EDC: 01/23/23 Dates by First Scan: No previous this is first scan Dates by Current Scan: (17 weeks/4 days) EDC: 01/14/23 Beta HCG (if available): Not available at this time SURVEY IUP: Single PLACENTA: Anterior PREVIA: No Previa DAT: 14.5 cm Normal CERVICAL LENGTH (transabdominal: norm > 3.0cm): 3.3 cm CERVICAL LENGTH (transvaginal: norm> 2.5cm): 3.3 cm (Supplemental transvaginal imaging performed to verify cervical length.) BIOMETRY PRESENTATION: Variable LIE: Variable BPD: 3.98 cm 18 weeks / 1 days HC: 14.35 cm 17 weeks / 4 days AC: 11.9 cm 17 weeks / 4 days FL: 2.4 cm 17 weeks / 2 days ESTIMATED WEIGHT IN GRAMS: 195.5 grams ESTIMATED WEIGHT IN LBS/OZ: 0 lbs. 7 oz. WEIGHT PERCENTAGE BASED ON ESTABLISHED DATES: 97% HC/AC: 1.21 Normal FL/AC: 20.25 Normal HEART RATE: 147 bpm RHYTHM: Normal IMPRESSION: The ultrasound gestational age is 17 weeks and 4 days. No complicating process seen.
--- NOTE | 2022-08-10 23:16 | XR ---
EXAMINATION TYPE: XR knee complete LT DATE OF EXAM: 08/10/2022 COMPARISON: NONE HISTORY: Knee pain TECHNIQUE: 3 views FINDINGS: There is no fracture nor dislocation. Joint spaces are normal. No sign of joint effusion. IMPRESSION: Negative left knee exam.
== END 2022-08-10 23:43 | disposition home or self-care (01) ==
LOC: EC 20:07
DX: O26.892 Other specified pregnancy related conditions, second trimester (principal); M23.92 Unspecified internal derangement of left knee; Z3A.16 16 weeks gestation of pregnancy; W10.9XXA Fall (on) (from) unspecified stairs and steps, initial encounter
CPT/HCPCS: 76805; 99284

== ENCOUNTER 2023-01-18 05:42 | Inpatient (IN) | payer BC, OTHER ==
[2023-01-13 16:36] VITALS: BMI 32.4
--- NOTE | 2023-01-15 08:51 | P.HPOB ---
History of Present Illness H&P Date: 01/15/23 Chief Complaint: Repeat section, gestational diabetes This patient is a pleasant 27 yr female estimated date of confinement 01/23/2023 estimated gestational age 39 2/7 weeks who presents to L&D for elective repeat section. has been complicated by gestational diabetes and has been on insulin and followed by Dr. Sánchez. Patient was also seen by MFM for an abnormal ultrasound and was found to have a multi-cystic right kidney. Has had weekly BPPs and 2x / week NSTs. Review of Systems Genitourinary: Reports Menstruation: Reports amenorrhea Past Medical History Past Medical History: GERD/Reflux Additional Past Medical History / Comment(s): gestational diabetes History of Any Multi-Drug Resistant Organisms: None Reported Past Surgical History: Section, Cholecystectomy Past Anesthesia/Blood Transfusion Reactions: No Reported Reaction, Family History of Problems w/ Anesthesia Additional Past Anesthesia/Blood Transfusion Reaction / Comment(s): grandma "didn't react well to it" Past Psychological History: No Psychological Hx Reported Smoking Status: Never smoker Past Alcohol Use History: None Reported Past Drug Use History: None Reported - Past Family History Mother Family Medical History: Osteoarthritis (OA) Medications and Allergies Home Medications Medication Instructions Recorded Confirmed Type Insulin Detemir (Levemir) [Levemir] 20 units SQ HS 02/19/21 01/13/23 History Allergies Allergy/AdvReac Type Severity Reaction Status Date / Time No Known Allergies Allergy Verified 01/13/23 16:32 Exam - OBG Physical Exam Abdomen: bowel sounds normal, no diffuse tenderness, no bruit present, no guarding noted, no hepatomegaly, no splenomegaly, no mass Vulva: both: normal Vagina: normal moisture, no discharge Cervix: no lesion, no discharge Uterus: enlarged Results Labs: O positive, Rubella Immune, RPR-HIV-Hep B/C, Glucola 151, GBS negative, MFM ultrasound right pelvic multi-cystic kidney Assessment and Plan Assessment: This is a pleasant 27 yr female 39 2/7 weeks gestation with insulin dependent gestational diabetes and also known multi-cystic right pelvic kidney. Patient has had a previous section and desires repeat. I have discussed this surgery and risks with her: infection, bleeding, possible injury to bowel, bladder, vessels and/or other organs. All of her questions were answered and a written consent obtained. (1) 39 weeks gestation of Status: Acute Code(s): Z3A.39 - 39 WEEKS GESTATION OF SNOMED Code(s): 86673638 (2) Gestational diabetes Status: Acute Code(s): O24.419 - GESTATIONAL DIABETES MELLITUS IN , UNSP CONTROL SNOMED Code(s): 05074759 (3) Previous delivery affecting Status: Acute Code(s): O34.219 - MATERNAL CARE FOR UNSP TYPE SCAR FROM PREVIOUS DEL SNOMED Code(s): 913120578 (4) anomaly Status: Acute Code(s): KJM6353 - SNOMED Code(s): 56952399
[2023-01-18] MEDS ORDERED: TRANEXAMIC 1,000 MG/100ML-NACL 1,000 MG in EMPTY BAG 1 BAG IV PRN (05:54)
[2023-01-18] MEDS ORDERED: miSOPROStoL 200 MCG TAB PO PRN (05:54)
[2023-01-18] MEDS ORDERED: LACTATED RINGERS 1,000 ML IV SCH (05:54)
[2023-01-18] MEDS ORDERED: OXYTOCIN 10 UNIT/ML 1 ML VIAL IM PRN (05:54)
[2023-01-18] MEDS ORDERED: CITRIC ACID-SODIUM CITRATE 15 ML CUP PO ONE (05:54)
[2023-01-18] MEDS ORDERED: METHYLERGONOVINE 0.2 MG/ML 1 ML AMP IM PRN (05:54)
[2023-01-18] MEDS ORDERED: CARBOPROST TROMETHAMINE 250 MCG/ML 1 ML AMP IM PRN (05:54)
[2023-01-18] MEDS ORDERED: LACTATED RINGERS 1,000 ML IV ONE (05:54)
[2023-01-18 06:07] LABS: Basophils % (A) 0 %; Eosinophils # (A) 0.2 k/uL (0-0.7); Eosinophils % (A) 2 %; HCT 34.5 % (34.0-46.0); HGB 11.8 gm/dL (11.4-16.0); Lymphocytes # (A) 1.7 k/uL (1.0-4.8); Lymphocytes % (A) 18 %; MCH 30.2 pg (25.0-35.0); MCHC 34.2 g/dL (31.0-37.0); MCV 88.4 fL (80.0-100.0); Mean Platelet Volume 9.9; Monocytes # (A) 0.6 k/uL (0-1.0); Monocytes % (A) 6 %; Neutrophils # (A) 6.9 k/uL (1.3-7.7); Neutrophils % (A) 72 %; Platelet Count 122 k/uL (150-450); Poikilocytosis Slight; RBC 3.91 m/uL (3.80-5.40); RDW 14.6 % (11.5-15.5); WBC 9.5 k/uL (3.8-10.6)
[2023-01-18 06:18] LABS: Glucose,Whole Blood 86 mg/dL (70-110)
[2023-01-18 06:23] VITALS: RESP 16
[2023-01-18] MEDS ORDERED: KETOROLAC 30 MG/ML 1 ML VIAL ONE (07:52)
[2023-01-18] MEDS ORDERED: MORPHINE SULFATE (PF) 0.3 MG/0.3 ML SYR ONE (07:52)
[2023-01-18] MEDS ORDERED: ONDANSETRON 4 MG/2 ML VIAL ONE (07:52)
[2023-01-18] MEDS ORDERED: OXYTOCIN 30 UNITS/500 ML NS BAG IV ONE (07:52)
[2023-01-18] MEDS ORDERED: fentaNYL (PF) 50 MCG/ML 2 ML AMP ONE (07:52)
[2023-01-18] MEDS ORDERED: PHENYLEPHRINE-0.9% NACL SYG 1,000 MCG/10 ML SYRINGE ONE (07:52)
--- NOTE | 2023-01-18 08:43 | P.OP ---
Date of Procedure: 01/18/23 Preoperative Diagnosis: #1: 39-2/7 week intrauterine . #2: Previous section desires repeat. #3: Insulin-dependent gestational diabetes Postoperative Diagnosis: Same Procedure(s) Performed: Repeat low transverse section Anesthesia: spinal Surgeon: Lev Lang Computer Tape Librarian #1: Grace Shipley Estimated Blood Loss (ml): 720 Pathology: other (Placenta) Condition: stable Disposition: floor Indications for Procedure: Please see dictated H&P for intimate details of this patient's admission. Brief summary is a pleasant 27-year-old 3 para 1 female 39-2/7 weeks gestation admitted to labor and delivery for elective repeat section secondary to previous section and gestational diabetes. Patient understands this surgery and risks and risks of infection, bleeding, possible injury bowel, bladder, vessels, and/or other organs. All the patient's questions are answered and a written consent is obtained. Operative Findings: This is a vigorous viable male Apgars 9 and 9 delivery time is 0810 hours. grossly appeared normal nuchal cord 1. Description of Procedure: This patient has a Duncan catheter placed to straight drain. She is subsequently taken to the operating room where she sat up and spinal anesthetic is administered without incident. With an adequate level of anesthesia she has abdominal prep and drape. The appropriate timeout is done. Scalpels then taken in the previous Pfannenstiel incision is incised. A second scalpel is taken down to the fascia and the fascia scored with a knife. Fascial incision extended bilaterally using the Graves scissors. Fascia is dissected off the rectus muscles sharply. Rectus muscles are the peritoneum was identified and entered sharply. Peritoneal incision extended superior and inferior without difficulty. Bladder blade is then placed. Bladder peritoneum was taken off the lower uterine segment sharply. Scalpels and taken a low transverse uterine incision is made. Using a hemostat I into the uterine cavity bluntly and there is large amount of clear fluid. The uterine incision is then bluntly extended. Infant's head is then gently guided through the incision with fundal pressure. Mouth and nares are bulb suctioned. There is a nuchal cord which is loose and easily reduced. With more fundal pressure deliver the rest this 's body. This is a vigorous viable male infant Apgars are 9 and 9 delivery time was 0810 hours. After delivery of the the umbilical cord is doubly clamped and cut. The placenta is then manually extracted intact. U terus is then externalized and the uterine incision demarcated with Clayton clamps. Uterine incision then closed using 0 Vicryl running locked fashion in 2 layers. This completed the latter peritoneum was then reapproximated using a 3- 0 Vicryl. Excess fluid is removed from the abdomen and pelvis. Uterus, tubes, ovaries appear normal for term gestation. Uterus placed back into the abdomen. With excellent hemostasis noted, the parietal peritoneum was identified and closed using 0 Vicryl running fashion. Rectus muscles reapproximated using 0 Vicryl interrupted fashion. Fascia is then closed using a running PDS. Fascial incision is intact and hemostatic. This completed the subcutaneous tissues and closed using a 3-0 Vicryl. Skin is and closed using rigoberto. All counts are correct 3. There are no complications. and mother are stable in delivery room.
[2023-01-18] MEDS ORDERED: ONDANSETRON 4 MG/2 ML VIAL IVP PRN (09:00)
[2023-01-18] MEDS ORDERED: NALOXONE 0.4 MG/ML 1 ML VIAL IV PRN (09:00)
[2023-01-18] MEDS ORDERED: LANOLIN CREAM 5 GM TUBE TOPICAL PRN (09:00)
[2023-01-18] MEDS ORDERED: ZOLPIDEM 5 MG TAB PO PRN (09:00)
[2023-01-18] MEDS ORDERED: OXYTOCIN 30 UNITS/500 ML NS 30 UNIT in SALINE 1 500ML.BAG IV SCH (09:00)
[2023-01-18] MEDS ORDERED: diphenhydrAMINE 50 MG/ML 1 ML VIAL IVP PRN (09:00)
[2023-01-18] MEDS ORDERED: diphenhydrAMINE 25 MG CAP PO PRN (09:00)
[2023-01-18] MEDS ORDERED: METOCLOPRAMIDE 5 MG/ML 2 ML VIAL IVP PRN (09:00)
[2023-01-18] MEDS ORDERED: SIMETHICONE 80 MG CHEWABLE PO PRN (09:00)
[2023-01-18] MEDS: LACTATED RINGERS 1,000 ML IV SCH ×2 (14:19→19:40)
[2023-01-18] MEDS: KETOROLAC 15 MG/ML 1 ML VIAL IVP SCH ×2 (16:31→22:42)
[2023-01-18] MEDS: SENNOSIDES-DOCUSATE SODIUM 1 EACH TAB PO SCH ×2 (19:31→19:41)
[2023-01-18] MEDS: ACETAMINOPHEN TAB 500 MG TAB PO SCH ×2 (19:31→19:40)
[2023-01-18] MEDS: IBUPROFEN 600 MG TAB PO SCH (19:40)
[2023-01-19] MEDS: ACETAMINOPHEN TAB 500 MG TAB PO SCH ×4 (01:23→19:59)
[2023-01-19] MEDS: KETOROLAC 15 MG/ML 1 ML VIAL IVP SCH ×3 (05:07→18:00)
[2023-01-19] MEDS: IBUPROFEN 600 MG TAB PO SCH ×5 (05:08→23:31)
[2023-01-19] MEDS: LACTATED RINGERS 1,000 ML IV SCH (05:08)
--- NOTE | 2023-01-19 06:51 | P.PNOBGPC ---
Subjective - Subjective Patient reports: Reports appetite normal, Reports voiding normally, Reports pain well controlled, Reports ambulating normally : doing well Objective - Vital Signs Latest vital signs: Vital Signs Temp Pulse Resp BP Pulse Ox 01/19/23 04:00 98.5 F 69 16 97/60 01/18/23 23:11 98.4 F 87 16 95/54 96 01/18/23 19:37 98.0 F 74 16 104/64 01/18/23 15:31 97.4 F L 82 16 106/56 98 01/18/23 12:00 88 16 108/65 98 01/18/23 10:56 92 16 110/58 97 01/18/23 10:31 97.4 F L 88 16 102/56 01/18/23 09:46 76 16 114/56 97 01/18/23 09:31 73 16 105/63 98 01/18/23 09:16 80 16 107/74 97 01/18/23 09:01 84 16 110/74 98 01/18/23 08:45 97.0 F L 92 16 128/75 97 Intake and Output 01/18/23 01/18/23 01/19/23 14:59 22:59 06:59 Intake Total 200 Output Total 1429 800 Balance -1429 -600 Intake: Oral 200 Output: Urine 650 800 Uretheral (Duncan) 300 Emesis 0 Output, Quantitative 779 Blood Loss Other: # Voids 300 - Exam Lungs: bilateral: normal Chest: Normal S1, Normal S2 Extremities: Present: normal Abdomen: Present: normal appearance, soft. Absent: distention, tenderness Incision: Present: normal, dry, intact Uterus: Present: normal, firm Assessment and Plan Assessment: Post operative day #1. Patient's resting complaints. Vital signs are stable she's afebrile. Uterus is firm nontender she's having normal lochia. Her incision is intact and dry. CBC is pending. Patient's ambulating, urinating, ambulating without difficulty. Plan today is to check a CBC, encourage ambulation, continue routine postoperative care (1) 39 weeks gestation of Current Visit: No Status: Acute Code(s): Z3A.39 - 39 WEEKS GESTATION OF SNOMED Code(s): 04183373 (2) Gestational diabetes Current Visit: No Status: Acute Code(s): O24.419 - GESTATIONAL DIABETES MELLITUS IN , UNSP CONTROL SNOMED Code(s): 84253031 (3) Previous delivery affecting Current Visit: No Status: Acute Code(s): O34.219 - MATERNAL CARE FOR UNSP TYPE SCAR FROM PREVIOUS DEL SNOMED Code(s): 460105541 (4) anomaly Current Visit: No Status: Acute Code(s): RQG0310 - SNOMED Code(s): 74901255
[2023-01-19 07:28] LABS: Basophils % (A) 0 %; Eosinophils % (A) 1 %; HCT 28.7 % (34.0-46.0); Lymphocytes # (A) 1.2 k/uL (1.0-4.8); Lymphocytes % (A) 15 %; MCHC 34.8 g/dL (31.0-37.0); MCV 89.1 fL (80.0-100.0); Mean Platelet Volume 10.1; Monocytes # (A) 0.4 k/uL (0-1.0); Monocytes % (A) 5 %; Neutrophils # (A) 6.3 k/uL (1.3-7.7); Neutrophils % (A) 78 %; Platelet Count 106 k/uL (150-450); RBC 3.22 m/uL (3.80-5.40); RDW 14.5 % (11.5-15.5); WBC 8.1 k/uL (3.8-10.6)
--- NOTE | 2023-01-19 07:28 | P.PN ---
Progress Note - Text Progress Note Date: 01/19/23 (5534) Anesthesia Postop day 1 Subjective: Status Post section with Duramorph. Patient seen and examined. Doing well without complaint. VAS 3 out of 10. No nausea or vomiting. Mild pruritus tolerable.. Afebrile. Gross lower extremity strength intact. . Without apparent anesthetic complications. Objective: Vital signs reviewed Heart: Regular Rate Lungs: Good chest excursion Abdomen: Appears nondistended Assessment: Status post with Duramorph postop day 1 Plan: Continue current care with your medical management. Anticipated and the Duramorph section around time today. You may see increased pain needs around this time.
[2023-01-19] MEDS: SENNOSIDES-DOCUSATE SODIUM 1 EACH TAB PO SCH ×2 (09:52→20:00)
[2023-01-20] MEDS: KETOROLAC 15 MG/ML 1 ML VIAL IVP SCH (04:19)
[2023-01-20] MEDS: ACETAMINOPHEN TAB 500 MG TAB PO SCH ×2 (05:43→10:44)
--- NOTE | 2023-01-20 06:42 | P.PNOBGPC ---
Subjective - Subjective Patient reports: Reports appetite normal, Reports voiding normally, Reports pain well controlled, Reports ambulating normally : doing well Objective - Vital Signs Latest vital signs: Vital Signs Temp Pulse Resp BP Pulse Ox 01/19/23 23:45 98.4 F 73 16 106/71 97 01/19/23 16:00 98.3 F 70 16 110/66 96 01/19/23 07:47 98.1 F 69 16 95/61 95 Intake and Output 01/19/23 01/19/23 01/20/23 14:59 22:59 06:59 Other: # Voids 0 2 2 - Exam Lungs: bilateral: normal Chest: Normal S1, Normal S2 Extremities: Present: normal Abdomen: Present: normal appearance, soft. Absent: distention, tenderness Incision: Present: normal, dry, intact Uterus: Present: normal, firm - Labs Labs: Abnormal Lab Results - Last 24 Hours (Table) 01/19/23 Range/Units 07:02 RBC 3.22 L (3.80-5.40) m/uL Hgb 10.0 L D (11.4-16.0) gm/dL Hct 28.7 L (34.0-46.0) % Plt Count 106 L (150-450) k/uL Assessment and Plan Assessment: Postoperative day #2. Patient is resting without complaints wishes to go home. Vital signs are stable she's afebrile. Uterus is firm nontender and she is h aving normal lochia. Her incision is intact and dry. Platelets on admission were 122 and yesterday they were 106. I am going to repeat them 1 more time prior to discharge. Patient's felt to be stable for discharge home follow up with me in 1 week. (1) 39 weeks gestation of Current Visit: No Status: Acute Code(s): Z3A.39 - 39 WEEKS GESTATION OF SNOMED Code(s): 67923029 (2) Gestational diabetes Current Visit: No Status: Acute Code(s): O24.419 - GESTATIONAL DIABETES MELLITUS IN , UNSP CONTROL SNOMED Code(s): 40034655 (3) Previous delivery affecting Current Visit: No Status: Acute Code(s): O34.219 - MATERNAL CARE FOR UNSP TYPE SCAR FROM PREVIOUS DEL SNOMED Code(s): 078681714 (4) anomaly Current Visit: No Status: Acute Code(s): KOJ1602 - SNOMED Code(s): 60237991
--- NOTE | 2023-01-20 06:49 | P.DS ---
Providers Date of admission: 01/18/23 05:42 Expected date of discharge: 01/20/23 Attending physician: Lev Lang Primary care physician: Stated None - Discharge Diagnosis(es) (1) 39 weeks gestation of Current Visit: No Status: Acute (2) Gestational diabetes Current Visit: No Status: Acute (3) Previous delivery affecting Current Visit: No Status: Acute (4) anomaly Current Visit: No Status: Acute Hospital Course: Please see dictated H&P for intimate details of this patient's admission. Brief summary this pleasant 27-year-old 3 para 1 female 39-2/7 weeks gestation who is admitted to labor and delivery for elective repeat section. Patient is admitted has a repeat low transverse section for viable male infant. Please see dictated delivery note. patient does well and on day #2 was felt be stable for discharge home follow up with me in 1 week. Of note patient did have some mild thrombocytopenia and her platelets were 122 on admission and 106 at the time of this dictation. We'll continue to follow those outpatient. Procedures: Repeat low transverse section Patient Condition at Discharge: Good Plan - Discharge Summary Discharge Rx Participant: No New Discharge Prescriptions: New Ibuprofen [Motrin] 600 mg PO Q6H #40 tab oxyCODONE HCL [OxyIR] 5 mg PO Q4HR PRN #18 tab PRN Reason: Pain Scale 4 - 6 No Action Insulin Detemir (Levemir) [Levemir] 20 units SQ HS Discharge Medication List Insulin Detemir (Levemir) [Levemir] 20 units SQ HS 02/19/21 [History] Ibuprofen [Motrin] 600 mg PO Q6H #40 tab 01/20/23 [Rx] oxyCODONE HCL [OxyIR] 5 mg PO Q4HR PRN #18 tab 01/20/23 [Rx] Follow up Appointment(s)/Referral(s): Lev Lang MD [STAFF PHYSICIAN] - 1 Week (Postoperative appointment on 01/29/2023 @1:30 PM Also please see me for a visit on 03/03/2023 @9:45 Am) Patient Instructions/Handouts: (DC) Activity/Diet/Wound Care/Special Instructions: No heavy lifting or strenuous activities for 6 weeks. No intercourse or anything per vagina for 6 weeks. Please call if any fever, chills, excessive vaginal bleeding, and/or abdominal pain. Discharge Disposition: HOME SELF-CARE
[2023-01-20 07:06] LABS: Basophils % (A) 0 %; Eosinophils # (A) 0.1 k/uL (0-0.7); Eosinophils % (A) 1 %; HCT 28.9 % (34.0-46.0); Lymphocytes # (A) 1.4 k/uL (1.0-4.8); Lymphocytes % (A) 20 %; MCH 31.5 pg (25.0-35.0); MCHC 34.5 g/dL (31.0-37.0); MCV 91.3 fL (80.0-100.0); Mean Platelet Volume 9.4; Monocytes # (A) 0.3 k/uL (0-1.0); Monocytes % (A) 5 %; Neutrophils # (A) 5.2 k/uL (1.3-7.7); Neutrophils % (A) 73 %; Platelet Count 112 k/uL (150-450); RBC 3.17 m/uL (3.80-5.40); RDW 14.5 % (11.5-15.5); WBC 7.1 k/uL (3.8-10.6)
[2023-01-20] MEDS: IBUPROFEN 600 MG TAB PO SCH (08:57)
[2023-01-20] MEDS: SENNOSIDES-DOCUSATE SODIUM 1 EACH TAB PO SCH (09:08)
[2023-01-20 09:11] VITALS: BP 116/69; PULSE 79; TEMP 98.3
== END 2023-01-20 10:30 | disposition home or self-care (01) | DRG 787 ==
LOC: 4FBP 05:42
PROVIDERS: ADMIT Obstetrics & Gynecology; ATTEND Obstetrics & Gynecology
PROC: 10D00Z1 Extraction of Products of Conception, Low, Open Approach (ICD-10-PCS; principal; 2023-01-18 08:00)
DX: O34.211 Maternal care for low transverse scar from previous cesarean delivery (principal); O99.12 Other diseases of the blood and blood-forming organs and certain disorders involving the immune mechanism complicating childbirth; O24.424 Gestational diabetes mellitus in childbirth, insulin controlled; O69.81X0 Labor and delivery complicated by cord around neck, without compression, not applicable or unspecified; O35.9XX0 Maternal care for (suspected) fetal abnormality and damage, unspecified, not applicable or unspecified; L29.9 Pruritus, unspecified; D69.6 Thrombocytopenia, unspecified; K21.9 Gastro-esophageal reflux disease without esophagitis; O99.62 Diseases of the digestive system complicating childbirth; O99.73 Diseases of the skin and subcutaneous tissue complicating the puerperium; Z37.0 Single live birth; Z3A.39 39 weeks gestation of pregnancy; Z90.49 Acquired absence of other specified parts of digestive tract
CPT/HCPCS: 83036; 85025; 86850; 86900; 86901

== ENCOUNTER 2024-05-11 18:34 | Emergency (ER) | payer BC, OTHER ==
--- NOTE | 2024-05-11 19:13 | ED ---
General Adult HPI - General Stated complaint: L knee pain/swelling Time Seen by Provider: 05/11/24 19:11 Source: patient Mode of arrival: ambulatory Limitations: no limitations - History of Present Illness Initial comments: 28-year-old female presented with chief complaint of left-sided knee pain. Has been ongoing for 5 days since she was playing with her kids on a track. No d istinct new injury or trauma. She does have a previous injury 1 year ago. She admits to pain with weightbearing and range of motion. States that she does currently follow with an orthopedic after a rotator cuff tear. No numbness tingling or weakness. - Related Data Home Medications Medication Instructions Recorded Confirmed Insulin Detemir (Levemir) [Levemir] 20 units SQ HS 02/19/21 01/18/23 Previous Rx's Medication Instructions Recorded Ibuprofen [Motrin] 600 mg PO Q6H #40 tab 01/20/23 oxyCODONE HCL [OxyIR] 5 mg PO Q4HR PRN #18 tab 01/20/23 Allergies Allergy/AdvReac Type Severity Reaction Status Date / Time No Known Allergies Allergy Verified 05/11/24 19:49 Review of Systems ROS Statement: Those systems with pertinent positive or pertinent negative responses have been documented in the HPI. ROS Other: All systems not noted in ROS Statement are negative. Past Medical History Past Medical History: GERD/Reflux Additional Past Medical History / Comment(s): gestational diabetes History of Any Multi-Drug Resistant Organisms: None Reported Past Surgical History: Section, Cholecystectomy Past Anesthesia/Blood Transfusion Reactions: No Reported Reaction, Family History of Problems w/ Anesthesia Additional Past Anesthesia/Blood Transfusion Reaction / Comment(s): grandma "didn't react well to it" Smoking Status: Former smoker - Past Family History Mother Family Medical History: Osteoarthritis (OA) General Exam - General Exam Comments Initial Comments: Visual Physical Exam Vital signs reviewed General: Well-appearing, nontoxic, no acute distress. Head: Normocephalic, atraumatic Eyes: PERRLA, EOMI ENT: Airway patent Chest: Nonlabored breathing Skin: No visual rash, normal skin tone Neuro: Alert and oriented 3 Musculoskeletal: No gross abnormalities Limitations: no limitations General appearance: alert, in no apparent distress Head exam: Present: atraumatic, normocephalic Eye exam: Present: normal appearance, EOMI Neck exam: Present: normal inspection. Absent: meningismus Respiratory exam: Absent: respiratory distress Left Knee exam: Present: full ROM, tenderness, swelling Neurological exam: Present: alert, oriented X3 Psychiatric exam: Present: normal affect, normal mood Skin exam: Present: warm, dry Course Vital Signs 05/11/24 05/11/24 19:46 21:27 Temperature 98.4 F 98.4 F Pulse Rate 110 H 91 Respiratory 18 18 Rate Blood Pressure 126/83 121/78 O2 Sat by Pulse 100 100 Oximetry Medical Decision Making - Medical Decision Making I performed the quick note portion of this visit, electronically signed Brea Jett PA-C Was pt. sent in by a medical professional or institution (WILIAN Can, OFFSET ASSISTANT PRESS OPERATOR, urgent care, hospital, or jail...) When possible be specific @ -No Did you speak to anyone other than the patient for history (EMS, parent, family, police, friend...)? What history was obtained from this source @ -No Did you review nursing and triage notes (agree or disagree)? Why? @ -I reviewed and agree with nursing and triage notes Were old charts reviewed (outside hosp., previous admission, EMS record, old EKG, old radiological studies, urgent care reports/EKG's, jail records)? Report findings @ -No old charts were reviewed Differential Diagnosis (chest pain, altered mental status, abdominal pain women, abdominal pain men, vaginal bleeding, weakness, fever, dyspnea, syncope, headache, dizziness, GI bleed, back pain, seizure, CVA, palpatations, mental health, musculoskeletal)? @ -Differential Musculoskeletal Muscular strain, contusion, ligament sprain, fracture, arthritis, septic arthritis, bursitis, cellulitis, muscle spasm, nerve compression, DVT, arterial occlusion, herpes zoster, electrolyte abnormality, tumor.... This is not meant to be in all inclusive list EKG interpreted by me (3pts min.). @ -As above X-rays interpreted by me (1pt min.). @ -X-ray shows no acute osseous pathology of the knee CT interpreted by me (1pt min.). @ -None done U/S interpreted by me (1pt. min.). @ -None done What testing was considered but not performed or refused? (CT, X-rays, U/S, labs)? Why? @ -None What meds were considered but not given or refused? Why? @ -None Did you discuss the management of the patient with other professionals (professionals i.e. , PA, OFFSET ASSISTANT PRESS OPERATOR, lab, RT, psych nurse, social media job titles, product management specialist, teacher, chief human resources officer, pillowcase cutter)? Give summary @ -No Was smoking cessation discussed for >3mins.? @ -No Was critical care preformed (if so, how long)? @ -No Were there social determinants of health that impacted care today? How? (Homelessness, low income, unemployed, alcoholism, drug addiction, transportation, low edu. Level, literacy, decrease access to med. care, long term, rehab)? @ -No Was there de-escalation of care discussed even if they declined (Discuss DNR or withdrawal of care, Hospice)? DNR status @ -No What co-morbidities impacted this encounter? (DM, HTN, Smoking, COPD, CAD, Cancer, CVA, ARF, Chemo, Hep., AIDS, mental health diagnosis, sleep apnea, morbid obesity)? @ -None Was patient admitted / discharged? Hospital course, mention meds given and route, prescriptions, significant lab abnormalities, going to OR and other pertinent info. @ -28-year-old female presenting with chief complaint of left knee pain and swelling. No distinct injury. Has been hurting for 5 days after playing with her kids. X-ray shows no acute osseous pathology. On exam the leg is swollen but there is no discoloration. Patient has full range of motion. She is educated on today's findings and supportive management at home. She does currently follow-up with an orthopedic, states that she would like another recommendation and referral is provided. Provided with crutches. Discharged. Follow-up with PCP. Report back to ER with any new or worsening symptoms. Discussed return parameters and answered all questions. Patient conveyed verbal understanding and agreed to the plan. I discussed this case in detail with my attending Dr. Webb Undiagnosed new problem with uncertain prognosis? @ -No Drug Therapy requiring intensive monitoring for toxicity (Heparin, Nitro, Insulin, Cardizem)? @ -No Were any procedures done? @ -No Diagnosis/symptom? @ -Knee sprain Acute, or Chronic, or Acute on Chronic? @ -Acute Uncomplicated (without systemic symptoms) or Complicated (systemic symptoms)? @ -Uncomplicated Side effects of treatment? @ -No Exacerbation, Progression, or Severe Exacerbation? @ -No Poses a threat to life or bodily function? How? (Chest pain, [place], [place], pneumonia, PE, COPD, DKA, ARF, appy, cholecystitis, CVA, Diverticulitis, Homicidal, Suicidal, threat to staff... and all critical care pts) @ -No Disposition Clinical Impression: Knee sprain Disposition: HOME SELF-CARE Condition: Good Instructions (If sedation given, give patient instructions): Knee Sprain (ED) Additional Instructions: Follow-up orthopedics. Report back to ER with any new or worsening symptoms. Rest, ice, compress, elevate the knee. Use crutches as needed. Is patient prescribed a controlled substance at d/c from ED?: No Referrals: Nonstaff,Physician [REFERRING] - 1-2 days Mitch Carmona DO [Doctor of Osteopathic Medicine] - 1-2 days Time of Disposition: 20:41
--- NOTE | 2024-05-11 19:43 | XR ---
EXAMINATION TYPE: XR knee complete LT DATE OF EXAM: 05/11/2024 7:32 PM CLINICAL INDICATION: Female, 28 years old with history of pain; H COMPARISON: None. TECHNIQUE: XR knee complete LT; examined in Frontal, lateral and oblique projections. FINDINGS: No evidence of any acute osseous pathology, soft tissue swelling, or joint effusion is no benita. IMPRESSION: 1. No acute osseous pathology. [facility], , 05/11/2024 7:40 PM
[2024-05-11 19:49] VITALS: RESP 18; TEMP 98.4
[2024-05-11] MEDS: KETOROLAC 15 MG/ML 1 ML VIAL IM STA (21:20)
[2024-05-11] MEDS: DEXAMETHASONE SOD PHOSPHATE 10 MG/ML 1 ML VIAL IM STA (21:20)
[2024-05-11 21:29] VITALS: BP 121/78; PULSE 91
== END 2024-05-11 21:27 | disposition home or self-care (01) ==
LOC: EC 18:34
CPT/HCPCS: 96372; 99283

== ENCOUNTER → 2024-05-23 | Outpatient (CLI) | payer BC ==
--- NOTE | 2024-05-24 01:11 | MR ---
EXAMINATION TYPE: MR knee LT wo con DATE OF EXAM: 05/23/2024 COMPARISON: Left knee x-ray May 11, 2024 HISTORY: Left Knee pain, swelling and locking on all sides of knee for 2 to 3 weeks due to a running injury TECHNIQUE: Multiplanar, multisequence images of the knee is performed without IV contrast. FINDINGS: MEDIAL MENISCUS: Anterior and posterior horns are intact without tear. LATERAL MENISCUS: Anterior and posterior horns are intact without tear. CRUCIATE LIGAMENTS: The anterior and posterior cruciate ligaments are intact and unremarkable. COLLATERAL LIGAMENTS: The medial collateral ligament and lateral collateral ligament complex are inta ct and unremarkable. EXTENSOR MECHANISM: Visualized quadriceps and patellar tendons are intact. EFFUSION: No significant suprapatellar joint effusion. POPLITEAL CYST: No popliteal/snider cyst. TRICOMPARTMENT SPACES: Tricompartment joint spaces are preserved. No significant spurring is seen. CARTILAGE: Tricompartmental articular cartilage is maintained BONE MARROW SIGNAL: No focal abnormal marrow signal is appreciated. OTHER: No additional significant abnormality is appreciated. IMPRESSION: No meniscal or ligamentous tear is seen. [facility], , 05/24/2024 1:09 AM
== END | disposition home or self-care (01) ==
LOC: RADMRIMAIN 11:00
PROVIDERS: ATTEND Orthopaedic Surgery
DX: M25.562 Pain in left knee (principal)